=== PATIENT | male | born 1960 | race Caucasian/White ===

== ENCOUNTER 2017-11-11 09:28 | Day surgery (SDC) | payer MEDICAID ==
[2017-11-11 10:27] VITALS: BMI 29.5
--- NOTE | 2017-11-11 12:16 | CP.SDSHP ---
Same Day Surgery H & P - History Proposed Procedure: EGD, Colonoscopy Pre-Op Diagnosis: colon cancer screening, HCV - Previous Medical/Surgical History Cardiac: Hypertension - Allergies Allergies: Allergies No Known Allergies Allergy (Verified 11/11/17 10:27) - Physical Exam Vital Signs: Vital Signs 11/11/17 10:28 Temperature 98 F Pulse Rate 68 Respiratory 18 Rate Blood Pressure 138/85 O2 Sat by Pulse 99 Oximetry Mental Status: Alert & Oriented x3 Neuro: WNL Heart: WNL Lungs: WNL GI: WNL - {Optional Preform as Required} Abdomen: WNL - Impression Impression: hcv, colon cancer screening Pt. Evaluated Today:Candidate for Anesthesia & Procedure: Yes - Date & Time Date: 11/11/17 Time: 11:00 Short Stay Discharge - Short Stay Discharge Admitting Diagnosis/Reason for Visit: CHRONIC HEPATITIS C Disposition: HOME/ ROUTINE
[2017-11-11] MEDS ORDERED: Lidocaine Hydrochloride 10 ML INJ ONE (12:19)
[2017-11-11] MEDS ORDERED: Midazolam 2 MG/2 ML VIAL ONE (12:19)
[2017-11-11] MEDS ORDERED: Propofol 10 mg/ml Inj (20 ML) ONE ×2 (12:19→12:36)
[2017-11-11 13:14] VITALS: TEMP 97.1; O2SAT 100
[2017-11-11 13:53] VITALS: BP 118/69; PULSE 60; RESP 16
== END 2017-11-11 13:50 | disposition home or self-care (01) ==
LOC: C.ENDO 09:28
PROVIDERS: ATTEND Internal Medicine Gastroenterology
DX: B18.2 Chronic viral hepatitis C (principal); Z12.11 Encounter for screening for malignant neoplasm of colon; K64.8 Other hemorrhoids; K75.9 Inflammatory liver disease, unspecified; K29.70 Gastritis, unspecified, without bleeding
CPT/HCPCS: 43239; 45378; 88305; 88342; J2250; J2704